=== PATIENT | female | born 2000 | race African-American/Black ===

== ENCOUNTER 2021-04-14 13:39 | Emergency (ER) | payer OTHER ==
[~2021-04-14] VITALS: Ht 165.1 cm; Wt 100.2 kg
--- NOTE | ~2021-04-14 | EMS ---
[place] [address] EMS Patient Care Report Name: SHELLY GUTIÉRREZ Room #: DEP KANNAN Muir#: [id number] Admission: 04/14/21 Attend Phys: Discharge: 04/14/21 Date of : 00 Report #: [id number] THIS REPORT FOR: //name// Report Transmitted: 04/15/2021 14:03 EMS Care Summary [place], [place]/[facility] Incident [id number] @ 04/14/2021 13:15 Incident Location [address] [place] [address] Patient SHELLY GUTIÉRREZ Female, 20 Years 2000 Patient Address [address] [place] [address] Patient History Anxiety, Patient Allergies No known allergies, Patient Medications None Reported, Chief Complaint anxiety Disposition Transported No Lights/[place] Dispatch Reason Chest Pain (Non-Traumatic) Transported To [facility] Narrative pt found sitting upright on couch and alert. pt a&ox4 gcs 15 and presented anxious. pt was crying and anxious. pt stated she has been having multiple panic attacks over the past 4 days that have been causing chest pain and headaches. pt stated she [place] [facility] [place] on 04/11/[address] [place] [address] EMS Patient Care Report Name: SHELLY GUTIÉRREZ Room #: DEP KANNAN Muir#: [id number] Admission: 04/14/21 Attend Phys: Discharge: 04/14/21 Date of : 00 Report #: [id number] was discharged with a dx of anxiety. pt stated the panic attacks havent stopped and the chest pain and headaches havent either. pt [place] [facility] [place] she would have to obtain an anti anxiety medication through a pcp and not the er. pt stated sh has a medicaid appt on [place] [facility] and cant see a pcp til after she obtains coverage. pt stated she has no insurance at this time and cant see a pcp. pt requested to be transported to the hospital by ambulance. Initial Vitals @13:25P: 96,R: 20,BP: 136/90,Pain: 2/10,GCS: 15,SpO2: 99,Revised Trauma: 12, @13:31P: 96,R: 20,BP: 136/74,GCS: 15,SpO2: 99,Revised Trauma: 12, Assessments @13:20MENTAL:Place Oriented,Event Oriented,Time Oriented,Person Oriented,SKIN:No Abnormalities,HEENT:Head/Face: No Abnormalities,Eyes: No Abnormalities,Neck/Airway: No Abnormalities,LUNG SOUNDS:General: No Abnormalities,Left Upper: No Abnormalities,Right Upper: No Abnormalities,Left Lower: No Abnormalities,Right Lower: No Abnormalities,ABDOMEN:General: No Abnormalities,Left Upper: No Abnormalities,Right Upper: No Abnormalities,Left Lower: No Abnormalities,Right Lower: No Abnormalities,PELVIS//GI:No Abnormalities,EXTREMITIES:Left Arm: No Abnormalities,Right Arm: No Abnormalities,Left Leg: No Abnormalities,Right Leg: No Abnormalities,PULSE:NEURO:No Abnormalities,@13:26MENTAL:No Abnormalities,SKIN:No Abnormalities,HEENT:Head/Face: No Abnormalities,Eyes: No Abnormalities,Neck/Airway: No Abnormalities,LUNG SOUNDS:General: No Abnormalities,Left Upper: No Abnormalities,Right Upper: No Abnormalities,Left Lower: No Abnormalities,Right Lower: No Abnormalities,ABDOMEN:General: No Abnormalities,Left Upper: No Abnormalities,Right Upper: No Abnormalities,Left Lower: No Abnormalities,Right Lower: No Abnormalities,PELVIS//GI:No Abnormalities,EXTREMITIES:Left Arm: No Abnormalities,Right Arm: No Abnormalities,Left Leg: No Abnormalities,Right Leg: No Abnormalities,PULSE:NEURO:No Abnormalities, Impression Behavioral/psychiatric episode Procedures @13:20 ALS Assessment Response: UnchangedSucceeded Timeline 13:14,Call Received 13:14,Dispatch Notified 13:15,Dispatched 13:15,En Route 13:19,On Scene 13:20,At Patient [address] [address] EMS Patient Care Report Name: [facility] Room #: [facility] KANNAN Muir#: [id number] Admission: 04/14/21 Attend Phys: Discharge: 04/14/21 Date of : 00 Report #: [id number] 13:20,ALS Assessment,Response: UnchangedSucceeded, 13:24,Depart Scene 13:25,BP: 136/90 M,PULSE: 96,RR: 20 R,SPO2: 99 Ox,ETCO2: ,BG: ,PAIN: 2,GCS: 15, 13:31,BP: 136/74 M,PULSE: 96,RR: 20 R,SPO2: 99 Ox,ETCO2: ,BG: ,PAIN: ,GCS: 15, 13:36,At Destination 13:57,Call Closed Disclaimer v1.1 Copyright 2021 [employer] This EMS Care Summary contains data elements from the applicable legal record (which may be displayed differently). It is designed to provide pertinent information for the following purposes: continuity of care, clinical quality, and state data reporting. The complete legal record is available to ED staff and administrators of the receiving hospital in [employer]'s Patient Tracker. All data is provided "as is."
[2021-04-14 14:26] LABS: ABSOLUTE NEUTROPHILS 2.1 thou/uL (1.4-8.2); BASOPHILS 0.8 % (0.0-2.0); EOSINOPHILS 0.2 % (0.0-3.0); HEMATOCRIT 40.5 % (37.0-47.0); HEMOGLOBIN 13.5 gm/dL (12.0-15.0); LYMPHOCYTES 52.1 % (24.0-44.0); MCHC 33.4 g/dL (28.0-37.0); MONOCYTES 8.4 % (1.0-8.0); PLATELET COUNT 321 thou/uL (150-400); POLYS 38.5 % (36.0-66.0); RDW 12.6 % (10.5-14.5); WBC 5.3 thou/uL (4.0-11.0)
[2021-04-14 14:30] LABS: POTASSIUM 4.2 mmol/L (3.5-5.1)
[2021-04-14 14:41] LABS: ALBUMIN 4.4 g/dL (3.4-5.0); TOTAL BILIRUBIN 0.8 mg/dL (0.2-1.0); TOTAL PROTEIN 8.5 g/dL (6.4-8.2)
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
[2021-04-14] MEDS ORDERED: VISTARIL 25 MG25 M1 PO (15:10)
[2021-04-14] MEDS ORDERED: NEXIUM40 MG PO (15:10)
[2021-04-14 16:01] VITALS: BP 109/71
== END 2021-04-14 16:22 | disposition home or self-care (01) ==
LOC: ER 13:39
PROVIDERS: Emergency Medicine
DX: R07.89 Other chest pain (principal); F41.9 Anxiety disorder, unspecified